=== PATIENT | female | born 1975 | race Caucasian/White ===

== ENCOUNTER 2018-07-12 22:40 | Emergency (ER) | payer OTHER ==
[~2018-07-12] VITALS: Ht 165.1 cm; Wt 80.7 kg
[2018-07-12] MEDS ORDERED: KETOROLAC 30 MG/1 ML ONE (23:06)
[2018-07-12] MEDS ORDERED: LORazepam 1MG TABLET ONE (23:07)
[2018-07-12] MEDS ORDERED: KETOROLAC 30 MG/1 ML IM ONE (23:30)
[2018-07-12] MEDS ORDERED: LORazepam 1MG TABLET PO ONE (23:30)
[2018-07-12 23:42] VITALS: BP 163/97
== END 2018-07-12 23:51 | disposition home or self-care (01) ==
LOC: ED 23:45
DX: G44.211 Episodic tension-type headache, intractable (principal); F41.1 Generalized anxiety disorder; R25.2 Cramp and spasm; I10 Essential (primary) hypertension; F32.9 Major depressive disorder, single episode, unspecified; F98.8 Other specified behavioral and emotional disorders with onset usually occurring in childhood and adolescence; Z98.890 Other specified postprocedural states; Z87.891 Personal history of nicotine dependence
CPT/HCPCS: 96372; 99283; J1885